=== PATIENT | male | born 1985 | race Caucasian/White ===

== ENCOUNTER 2018-12-19 09:54 | Outpatient (CLI) | payer OTHER | END 2018-12-19 09:55 | disposition home or self-care (01) | LOC: C.PAT 09:54 | DX: M51.26 Other intervertebral disc displacement, lumbar region (principal); M54.5 Low back pain ==

== ENCOUNTER 2019-01-09 06:00 | Inpatient (IN) | payer OTHER ==
[2018-12-19 10:26] VITALS: BMI 27.6
[2019-01-09] MEDS ORDERED: Propofol 10 mg/ml 0 MG/0 ML VIAL ONE (06:55)
[2019-01-09] MEDS ORDERED: Propofol 10 mg/ml Inj (20 ML) ONE ×2 (07:10→08:22)
[2019-01-09] MEDS ORDERED: Midazolam 2 MG/2 ML VIAL ONE (07:10)
[2019-01-09] MEDS ORDERED: Lidocaine Hydrochloride 5 ML INJ ONE (07:11)
[2019-01-09] MEDS ORDERED: Succinylcholine Chloride 20 mg/ml Syr (5 ml) IV ONE (07:11)
[2019-01-09] MEDS ORDERED: Lidocaine 4% (Laryng-O-Jet) Kit MM ONE (07:11)
[2019-01-09] MEDS ORDERED: Bupivacaine Liposomal Inj 20 ml INFIL ONE (07:33)
[2019-01-09] MEDS ORDERED: Bacitracin 50,000 UNIT in Sodium Chloride 0.9% Irrig 1,000 ML IR SCH (07:34)
[2019-01-09] MEDS ORDERED: Rocuronium 10 mg/ml (5 ml) ONE (07:35)
[2019-01-09] MEDS ORDERED: Absorbable Gelatin Sponge Size 100 ONE (07:37)
[2019-01-09] MEDS ORDERED: Lidocaine/Epinephrine 1% 1:100000 10 ML IJ ONE (07:37)
[2019-01-09] MEDS ORDERED: Thrombin Topical 20,000 Intl Units Spray Kit TOP ONE (07:38)
[2019-01-09] MEDS ORDERED: Bupivacaine HCl 0.5% PF (10 ml) Inj ONE (07:38)
[2019-01-09] MEDS ORDERED: ceFAZolin 1 gm in NS 1 GM/100 ML BAG IVPB ONE ×2 (07:38→08:28)
[2019-01-09] MEDS ORDERED: Bacitracin Ointment 30 GM TUBE ONE (07:39)
[2019-01-09] MEDS ORDERED: Sodium Chloride 0.9% 20 ML IV ONE (08:28)
[2019-01-09] MEDS ORDERED: Propofol 10 mg/ml 1,000 MG/100 ML VIAL ONE (09:50)
[2019-01-09] MEDS ORDERED: HYDROmorphone 0.5 mg/0.5 ml ISec IVP PRN (11:04)
--- NOTE | 2019-01-09 12:42 | RAD ---
Date of service: 01/09/2019 PROCEDURE: Intraoperative Fluoroscopy. HISTORY: DISC DERANGEMENT FINDINGS: Fluoroscopic assistance was provided for posterior laminectomy, fusion L4-L5. Please refer to the operative report from MARIANNA Navarro. Total fluoroscopic time (continuous mode) utilized during the procedure 43.4 seconds. Total exam DLP: 16.35 (mGy).
[2019-01-09] MEDS: Potassium Ch 20mEq in D5-1/2NS 1,000 ML IV SCH (18:05)
[2019-01-10] MEDS: Lactated Ringer's 1,000 ML IV SCH ×2 (02:57→11:30)
[2019-01-10] MEDS: Potassium Ch 20mEq in D5-1/2NS 1,000 ML IV SCH ×4 (05:12→18:15)
--- NOTE | 2019-01-10 09:54 | CP.PCM.PN ---
Subjective - Date & Time of Evaluation Date of Evaluation: 01/10/19 Time of Evaluation: 09:53 - Subjective Subjective: pod 1 c/o mod op site pain st good no dec pin ambulated adv act Objective - Vital Signs/Intake and Output Vital Signs (last 24 hours): Temp Pulse Resp BP Pulse Ox 98.9 F 105 H 20 122/78 97 01/10/19 07:30 01/10/19 07:30 01/10/19 07:30 01/10/19 07:30 01/10/19 07:30 Intake and Output: 01/10/19 01/10/19 06:59 18:59 Intake Total 1700 Balance 1700 - Medications Medications: Current Medications Docusate Sodium (Colace) 100 mg PO BID [facility] Last Admin: 01/09/19 20:28 Dose: 100 mg Hydromorphone HCl (Dilaudid) 0.5 mg IVP Q5M PRN PRN Reason: Pain, moderate (4-7) Last Admin: 01/09/19 13:32 Dose: 0.5 mg Hydromorphone/Sodium Chloride (Dilaudid [employer]) 5 mg IV Q4H PRN; Protocol PRN Reason: Pain, moderate (4-7) Last Admin: 01/10/19 06:42 Dose: 5 mg Lactated Ringer's (Lactated Ringer's) 1,000 mls @ 125 mls/hr IV .Q8H [facility] Last Admin: 01/10/19 02:57 Dose: Not Given Potassium Chloride/Dextrose/Sod Cl (Potassium Chl 20 Meq In D5-1/2ns) 1,000 mls @ 100 mls/hr IV .Q10H [facility] Last Admin: 01/10/19 05:12 Dose: 100 mls/hr Ondansetron HCl (Zofran Tab) 4 mg PO Q6 [facility] Last Admin: 01/10/19 05:11 Dose: 4 mg
--- NOTE | 2019-01-10 11:59 | OP ---
PROCEDURE DATE: 01/09/2019 PREOPERATIVE DIAGNOSIS: Lumbar disk derangement, L4-L5. POSTOPERATIVE DIAGNOSIS: Lumbar disk derangement, L4-L5. PROCEDURE: L4-L5 decompression diskectomy, interbody fusion, segmental pedicle screw fixation and posterolateral fusion with iliac autograft. SURGEON: Reji Yu MD CO-SURGEON: Douglas Begum MD ANESTHESIA: General endotracheal. ESTIMATED BLOOD LOSS: 100 mL, there was not enough loss to return via [employer]. JUSTIFICATION: The patient is status post an accident ever since when he has been suffering with severe low back pain, radicular pain. He failed long-term conservative workup. Imaging workup with MRI documented a significant disk derangement at the L4-L5 level. The patient also had a fairly less impressive pathology at L3-L4. He was offered the possibility of including that in his construct but after intense discussion including pros and cons etc., he declined. PROCEDURE: The patient taken to the operating room. He was hooked up to neurophysiological monitoring, carefully intubated and anesthetized. He was placed on the OR table on a Urban frame in a prone position. Care was taken to protect his face, eyes, endotracheal tube and all bony prominences. The entire low back was then scrubbed with acetone, scrub painted and draped in the usual sterile fashion. Incision was localized with lateral fluoroscopy, traced out overlying the spinous processes of L4-L5. The incision was made with a 10-blade knife, carried down to the level of the fascia. The Bovie cautery was used to incise the fascia, strip the paraspinal muscles off the spinous processes and lamina of L4 and L5. Confirmatory x-ray was taken. The exposure was widened out laterally bilaterally with the Bovie and Jones elevators to expose the transverse processes bilaterally at each level. When the exposure was completed, bone harvesting was performed. A 5-gauge trocar was inserted directly into the right superior posterior iliac crest. Approximately 90 mL of marrow was aspirated. This was then spun down to obtain the bone marrow mesenchymal cells later used in the fusion. At this point, the decompression was begun. The Leksell rongeur was used to remove the inferior spinous process and thinned down the inferior lamina of L4 as well as the L4-L5 facet. This bone was later used in the bone fusion. We then used various Kerrison rongeurs to perform a wide generous laminotomy at this level performing a generous medial facetectomy, unroofing and protecting the thecal sac throughout. The exposure was made wide enough to implant carbon fiber fusion cages in the lateral disk areas bilaterally. Some of the epidural veins were coagulated. At this point, we began the diskectomy of the left L5 nerve root gently retracted medially. The disk was incised, grossly emptied the disk material with the use of pituitary rongeurs and curettes. We used 8 through 11 mm shabnam which we felt was an adequate for remove all disk material and begin the decortication. This was completed with various size and shaped large curettes. The identical procedure was then performed back on the patient's right side after which the disk space was liberally packed with bone grafting material which included chopped up products of decompression some marrow impregnated allograft and marrow impregnated bone matrix sponges. Following this a 9 x 11 mm carbon fiber fusion cage was filled with the bone products tapped into the interspace until it was well-seated and countersunk. This was confirmed both visually and fluoroscopically. The identical bone packing and placement of the fusion cage was performed back on the left side, again visual inspection and lateral fluoroscopy confirmed excellent position of both of these interbody grafts. At this point, we used the high-speed drill to decorticate the lateral gutters, which included the transverse processes, pars and lateral facet. We then placed the pedicular screws using the technique of visual inspection and lateral fluoroscopy, we identified the pedicular entrance. The high-speed drill was used to drill through the cortical bone. A gearshift passed down the barrel of the pedicle into the vertebral body. A ball-tip probe was used to sound the passage way and then lastly the screw was placed. Additionally, the gearshift and screws were all stimulated with electrical current while monitoring EMG activity to ensure there was no evidence of breach. Using this technique, 6.0 diameter screws of various lengths were placed bilaterally at L4 and L5. No screw elicited any EMG activity with the less than 20 mA of current. We then placed the appropriate size connecting rods in the two screw head receptacles on each side. Locking nuts placed, torque-wrenched tight. We ensure there was no foreign matter or bony material in the thecal sac which was covered by Gelfoam. The appropriate-sized cross connector was placed in its connection sites were all torque-wrenched tight. AP and lateral x-ray confirmed superb position of the entire construct. We then placed all remaining bone graft materials into lateral gutters. The muscle and fascia were closed using interrupted 0 Vicryl. The wound irrigated with antibiotic solution. The subcu closed in two different layers of 2-0 Vicryl. The skin closed with running 3-0 Monocryl, benzoin and Steri-Strips. Dressing was applied. The patient was turned back onto a stretcher, easily extubated, noted moving all groups of both lower extremities with excellent strength on his way to recovery room. All counts were correct. There were no complications. Neurophysiological monitoring remained stable over this procedure. Reji Yu MD
[2019-01-10] MEDS: oxyCODONE 20 mg ER Tab (oxyCONTIN) PO SCH ×2 (12:40→22:28)
[2019-01-11] MEDS: Potassium Ch 20mEq in D5-1/2NS 1,000 ML IV SCH (03:38)
[2019-01-11] MEDS: Lactated Ringer's 1,000 ML IV SCH (05:41)
[2019-01-11] MEDS: Oxycodone/Acetaminophen 5/325 mg Tab PO PRN ×2 (08:17→20:29)
[2019-01-11] MEDS: oxyCODONE 20 mg ER Tab (oxyCONTIN) PO SCH ×2 (11:04→22:06)
--- NOTE | 2019-01-11 11:23 | CP.PCM.PN ---
Subjective - Date & Time of Evaluation Date of Evaluation: 01/11/19 Time of Evaluation: 11:20 - Subjective Subjective: SPINE - POD #2 Pt resting in bed. Complains of abd discomfort. Feels as though he has to pass gas "but can't." Seen by PT this am. Able to amb in hallway and do stairs. Voiding ok. VSS. Temp 99-100. Neuro remains intact. Abd soft, non-tender, sl distended. Plan: Continue to mobilize as tolerated. Will try suppository. Objective - Vital Signs/Intake and Output Vital Signs (last 24 hours): Temp Pulse Resp BP Pulse Ox 100 F H 96 H 20 119/78 97 01/11/19 07:00 01/11/19 07:00 01/11/19 07:00 01/11/19 07:00 01/11/19 07:00 Intake and Output: 01/11/19 01/11/19 06:59 18:59 Intake Total 1200 800 Output Total 800 Balance 1200 0 - Medications Medications: Current Medications Docusate Sodium (Colace) 100 mg PO BID [facility] Last Admin: 01/11/19 11:04 Dose: 100 mg Hydromorphone HCl (Dilaudid) 0.5 mg IVP Q5M PRN PRN Reason: Pain, moderate (4-7) Last Admin: 01/09/19 13:32 Dose: 0.5 mg Hydromorphone/Sodium Chloride (Dilaudid Metal Casket Maker) 5 mg IV Q4H PRN; Protocol PRN Reason: Pain, moderate (4-7) Last Admin: 01/10/19 06:42 Dose: 5 mg Lactated Ringer's (Lactated Ringer's) 1,000 mls @ 125 mls/hr IV .Q8H [facility] Last Admin: 01/11/19 05:41 Dose: Not Given Potassium Chloride/Dextrose/Sod Cl (Potassium Chl 20 Meq In D5-1/2ns) 1,000 mls @ 100 mls/hr IV .Q10H [facility] Last Admin: 01/11/19 03:38 Dose: 100 mls/hr Ondansetron HCl (Zofran Tab) 4 mg PO Q6 [facility] Last Admin: 01/11/19 11:07 Dose: 4 mg Oxycodone HCl (Oxycontin Extended Release Tab) 20 mg PO Q12H [facility] Last Admin: 01/11/19 11:04 Dose: 20 mg Oxycodone/Acetaminophen (Percocet 5/325 Mg Tab) 1 tab PO Q4H PRN PRN Reason: Pain, Mild (1-3) Stop: 01/13/19 10:16 Last Admin: 01/11/19 08:17 Dose: 1 tab
[2019-01-12] MEDS: Potassium Ch 20mEq in D5-1/2NS 1,000 ML IV SCH ×3 (01:18→14:27)
[2019-01-12] MEDS: Oxycodone/Acetaminophen 5/325 mg Tab PO PRN (01:26)
[2019-01-12] MEDS: Lactated Ringer's 1,000 ML IV SCH ×2 (04:48→14:27)
--- NOTE | 2019-01-12 08:42 | CP.PCM.PN ---
Subjective - Date & Time of Evaluation Date of Evaluation: 01/12/19 Time of Evaluation: 08:41 - Subjective Subjective: still c/o nausa had diarrhea yesterday still not eating well cont obs obtain routine labs today Objective - Vital Signs/Intake and Output Vital Signs (last 24 hours): Temp Pulse Resp BP Pulse Ox 99.0 F 90 20 128/79 98 01/12/19 07:00 01/12/19 07:00 01/12/19 07:00 01/12/19 07:00 01/12/19 07:00 Intake and Output: 01/12/19 01/12/19 06:59 18:59 Intake Total 800 Balance 800 - Medications Medications: Current Medications Docusate Sodium (Colace) 100 mg PO BID [facility] Last Admin: 01/11/19 19:00 Dose: Not Given Hydromorphone HCl (Dilaudid) 0.5 mg IVP Q5M PRN PRN Reason: Pain, moderate (4-7) Last Admin: 01/09/19 13:32 Dose: 0.5 mg Hydromorphone/Sodium Chloride (Dilaudid Senior Hardware Engineer) 5 mg IV Q4H PRN; Protocol PRN Reason: Pain, moderate (4-7) Last Admin: 01/10/19 06:42 Dose: 5 mg Lactated Ringer's (Lactated Ringer's) 1,000 mls @ 125 mls/hr IV .Q8H [facility] Last Admin: 01/12/19 04:48 Dose: Not Given Potassium Chloride/Dextrose/Sod Cl (Potassium Chl 20 Meq In D5-1/2ns) 1,000 mls @ 100 mls/hr IV .Q10H [facility] Last Admin: 01/12/19 06:03 Dose: 100 mls/hr Ondansetron HCl (Zofran Inj) 4 mg IVP Q6H PRN PRN Reason: Nausea/Vomiting Last Admin: 01/12/19 08:08 Dose: 4 mg Oxycodone HCl (Oxycontin Extended Release Tab) 20 mg PO Q12H [facility] Last Admin: 01/11/19 22:06 Dose: Not Given Oxycodone/Acetaminophen (Percocet 5/325 Mg Tab) 1 tab PO Q4H PRN PRN Reason: Pain, Mild (1-3) Stop: 01/13/19 10:16 Last Admin: 01/12/19 01:26 Dose: 1 tab
[2019-01-12 11:56] LABS: MEAN CELL VOLUME 88.6 fL (80.0-94.0); MEAN CORPUSCULAR HEMOGLOBIN 30.2 pg (27.0-31.0); MEAN CORPUSCULAR HGB CONC 34.1 g/dL (33.0-37.0); MEAN PLATELET VOLUME 7.9 fL (7.2-11.7); RBC 3.75 Mil/uL (4.40-5.90); RED CELL DISTRIBUTION WIDTH 13.6 % (11.5-14.5)
[2019-01-12 11:58] LABS: HEMOGLOBIN 11.3 g/dL (12.0-18.0); WHITE BLOOD COUNT 8.1 K/uL (4.8-10.8)
[2019-01-12] MEDS: oxyCODONE 20 mg ER Tab (oxyCONTIN) PO SCH ×2 (11:59→22:25)
[2019-01-12 12:21] LABS: BLOOD UREA NITROGEN 7 mg/dL (9-20); CALCIUM 8.5 mg/dl (8.6-10.4); GFR NON-AFRICAN AMERICAN > 60
[2019-01-13 01:02] VITALS: RESP 20
[2019-01-13 07:47] VITALS: BP 118/74; PULSE 84; TEMP 98.5; O2SAT 97
[2019-01-13] MEDS: oxyCODONE 20 mg ER Tab (oxyCONTIN) PO SCH (10:00)
--- NOTE | 2019-01-14 07:32 | OP ---
PROCEDURE DATE: 01/09/2019 PREOPERATIVE DIAGNOSIS: Disk derangement, L4-L5. POSTOPERATIVE DIAGNOSIS: Disk derangement, L4-L5. OPERATIONS: 1. Posterior lumbar interbody and lateral fusion, L4-L5. 2. Use of intervertebral devices. 3. Use of non-segmental spinal instrumentation. 4. Use of autograft by means of bone marrow aspiration. SURGEON: Douglas Begum MD CO-SURGEON: Reji Yu MD ANESTHESIA: General endotracheal tube intubation. DESCRIPTION OF PROCEDURE: The patient was brought to the operating room and general anesthesia was achieved. Intravenous antibiotics were administered and spinal cord monitor leads were placed throughout the patient's body. Real- time monitoring was done by ict support technicians in the room and remote monitoring done by a physician as well. A Martinez catheter was inserted once the antibiotics have been administered and sequential compression boots were placed to each of the patient's legs. The patient was then gently transferred from the supine position to the prone position on the operating table and he was placed on a Urban frame keeping his abdomen free from pressure anteriorly. Care was taken to protect the elbows and knees from pressure points. A sterile drape was used to seal off the patient's perineal region from the operative field and his back was subsequently sterilely prepped and draped. Lidocaine 1% with epinephrine was used to infiltrate the site for the incision as located under fluoroscopy and the incision was then made sharply in the midline. This was taken out subcutaneous tissue using sharp and blunt dissection. Hemostasis was achieved using electrocautery. The fascia was divided and stripped laterally off the spinous processes and lamina using Jones elevators. Fluoroscopic views demonstrated that we were at the L4-L5 level. Soft tissue attachments have cleared off the transverse processes of L4 and L5 on each side as well as the interlaminar spaces and the L4-L5 facet joints. A trocar was placed in the watch engine operator right ilium and 90 mL of bone marrow aspirate was obtained. This was sterilely passed to the ict support technicians, who processed it through the harvest system and returned the collected mesenchymal stem cells to the OR table. The stem cells were used to soak strips and cubes of Conform sponge as well as process through the IC chamber. Thrombinated Gelfoam powder was used for hemostasis at the marrow donor site. A Leksell rongeur was then used to remove the spinous process and thin down the lamina. Going in a caudal to cephalad fashion, Kerrison rongeurs were used to perform the laminectomy centrally and then out laterally to each side. At the level of the disk space, it was carried out far enough that we could easily pass the broach, indicating there will be enough room to subsequently pass the cages. Hemostasis was achieved with thrombinated Gelfoam powder as well as bipolar cautery. A needle was placed in the disk and again, fluoroscopy verified were at the L4-L5 level. The thecal sac was gently retracted and annulus sharply incised. Disk material was removed with the endplate shabnam up to including the size 11 along with the pituitary rongeur and the ring and spoon curettes. Same technique was used on the right side to remove any remaining tissue from the endplates and the marrow-soaked cubes of Conform along with the bone grafting substrate was packed into the disk space. The bone grafting substrate consisted of the patient's laminar bone, the IC chamber bone, and Optium putty. A 9 x 11 cage packed with the graft was then tamped into place and countersunk. We moved back to the left side where in similar fashion after inspecting that no remaining disk material was there, marrow-soaked cubes to Conform and bone grafting substrate was packed into the disk space and another 9 x 11 cage packed with the graft was tamped into place and countersunk. A high-speed drill was then used to decorticate the transverse prostheses and L4-L5 facet joint on each side. Under fluoroscopic guidance, the entry point for the screw was located and opened with the high-speed drill. The gearshift tool used to create a channel through the pedicle and the bony integrity confirmed with a ball-tip probe and a 6.0 x 40 mm screw was inserted. Same technique was used on the left side and another 40 mm x 6.0 screw inserted. Stimulation revealed no electrophysiologic abnormalities. We then moved down the L5 level where again under fluoroscopic guidance, the drill was used on each side to create the entry point and the gearshift tool used to create the channel through the pedicle intervertebral body using fluoroscopic guidance. The ball-tip probe was used to confirm bony integrity of each channel and a 6.0 x 40 mm screw was inserted on the right side and 6.0 x 45 mm screw inserted on the left. AP views were taken to confirm the screws were placed well. A 40-mm precut lordotic cheo was used to connect the two screws on the left side and a 45 mm cheo on the right. The caps were appropriately tightened and torqued. The midline was irrigated with antibiotic solution. Hemostasis achieved with bipolar cautery as well as thrombinated Gelfoam powder. A large piece of solid Gelfoam was used to cover the exposed neural elements. A #6 matrix cross-link was then applied to add rotational stability to the OR construct. Final AP and lateral fluoroscopic views showed excellent position of the intervertebral devices and the hardware. The wound was then closed in layers with interrupted sutures of 0 Vicryl for the muscle and fascia and 20 mL of 0.5% Marcaine along with 20 mL of Exparel, which was diluted with an additional 20 mL of normal saline was injected into the paraspinal muscles to help with postoperative pain relief. The subcutaneous tissue after further irrigation was then closed in layers with interrupted sutures of 2-0 Vicryl. The skin was approximated with a running subcuticular suture of 3-0 Monocryl. Steri-Strips and sterile dressing were applied and the patient was gently transferred back onto bed in the supine position. He was awakened and extubated. He was taken to recovery room in stable condition having tolerated the procedure well. He was actively moving all extremities at the time of the transfer and no permanent electrophysiologic abnormalities were noted at the completion of the case. Estimated blood loss was 100 mL. He received 2 liters of crystalloid during the operation. He had a urine output of approximately 50 mL for the procedure. Douglas Begum MD
== END 2019-01-13 12:10 | disposition home or self-care (01) | DRG 455 ==
LOC: C.9S 06:00 → C.6T 15:01
PROVIDERS: ADMIT Neurological Surgery; ATTEND Neurological Surgery
PROC: 0SG1071 Fusion of 2 or more Lumbar Vertebral Joints with Autologous Tissue Substitute, Posterior Approach, Posterior Column, Open Approach (ICD-10-PCS; 2019-01-09)
PROC: 07DR3ZZ Extraction of Iliac Bone Marrow, Percutaneous Approach (ICD-10-PCS; 2019-01-09)
PROC: 0SG10AJ Fusion of 2 or more Lumbar Vertebral Joints with Interbody Fusion Device, Posterior Approach, Anterior Column, Open Approach (ICD-10-PCS; principal; 2019-01-09 07:30)
DX: M51.26 Other intervertebral disc displacement, lumbar region (principal); M51.36 Other intervertebral disc degeneration, lumbar region; M48.062 Spinal stenosis, lumbar region with neurogenic claudication